=== PATIENT | male | born 1970 | race Two or more races ===

== ENCOUNTER 2019-07-20 21:22 | Emergency (ER) | payer SELFPAY ==
[~2019-07-20] VITALS: Ht 154.9 cm; Wt 72.6 kg
--- NOTE | 2019-07-20 22:04 | PHYS DOC ---
Past Medical History Past Medical History: No Pertinent History Past Surgical History: No Surgical History Smoking: Cigarettes Alcohol Use: Occasionally Drug Use: None Adult General Chief Complaint Chief Complaint: INSECT BITE HPI HPI 49-year-old male presents to the emergency department with complaints of left fifth toe pain. Patient states partially 3 days ago he noticed irritation and felt something bite him on the toe unknown exactly what this was. He has had some intermittent fever however nothing currently. He denies any myalgias, nausea, vomiting, abdominal pain, shortness of breath, chest pain. He states that given the pain presented ER for further evaluation. All other ROS negative unless documented in HPI Review of Systems Review of Systems See Above Current Medications Current Medications Current Medications Medications (Trade) Dose Ordered Sig/Skyler Start Time Stop Time Status Last Admin Dose Admin Doxycycline Hyclate (Vibra-Tab) 100 mg 1X ONCE 07/20/19 22:30 07/20/19 22:31 DC 07/20/19 22:37 100 MG Allergies Allergies Allergies Coded Allergies Type Severity Reaction Last Updated Verified No Known Drug Allergies 07/20/19 No Physical Exam Physical Exam See Above Constitutional: Well developed, well nourished, no acute distress, non-toxic appearance. [] Cardiovascular:Heart rate regular rhythm, no murmur [] Lungs & Thorax: Bilateral breath sounds clear to auscultation [] Abdomen: Bowel sounds normal, soft, no tenderness, no masses, no pulsatile masses. [] Skin: Warm, dry, no erythema, no rash. (Toe with likely spider bite, some necrotic area in the center, erythema with some blanching of the toe, no streaking up the leg, no evidence of fluctuance on examination. Extremities: No tenderness, no cyanosis, no clubbing,no edema. [] Neurologic: Alert and oriented X 3,no focal deficits noted. [] Psychologic: Affect normal, judgement normal, mood normal. [] Current Patient Data Vital Signs Vital Signs Date Time Temp Pulse Resp B/P (MAP) Pulse Ox O2 Delivery O2 Flow Rate FiO2 07/20/19 22:09 98.3 100 18 149/94 (112) 97 Room Air 98.3 EKG EKG [] Radiology/Procedures Radiology/Procedures [facility] [address] [place] [address] IMAGING REPORT Signed PATIENT: MAILE [place]: [id number] : 1970 LOCATION: ER AGE: 49 SEX: M EXAM STATUS: REG ER ORD. PHYSICIAN: SUKHI HI MD REASON: spider bite to left 5th digit on foot, eval bone for infection PROCEDURE: FOOT LEFT 2V Left foot x-rays 2 views HISTORY: Spider bite left fifth digit of the foot, infection. FINDINGS: No fracture or dislocation. No periosteal reaction or lytic bone destruction to localize a site of osteomyelitis including the fifth toe. The soft tissues are unremarkable. Plantar spur of the calcaneus. IMPRESSION: No acute osseous injury. Electronically signed by: Magalys Muhammad MD (07/21/2019 2:26 AM) [facility] DICTATED and SIGNED BY: MAGALYS MUHAMMAD MD DATE: 07/21/19225 [] Course & Med Decision Making Course & Med Decision Making Pertinent Labs and Imaging studies reviewed. (See chart for details) []49-year-old male presents to the emergency department with complaints of left fifth toe pain. Patient states partially 3 days ago he noticed irritation and felt something bite him on the toe unknown exactly what this was. He has had some intermittent fever however nothing currently. He denies any myalgias, nausea, vomiting, abdominal pain, shortness of breath, chest pain. He states aliza t given the pain presented ER for further evaluation. Xray without acute osseous injury. Plan abx upon discharge. Return to the ER with worsening symptoms Dragon Disclaimer Dragon Disclaimer This electronic medical record was generated, in whole or in part, using a voice recognition dictation system. Departure Departure Impression: Primary Impression: Spider bite Disposition: 01 HOME, SELF-CARE Condition: STABLE Referrals: NO PCP (PCP) Patient Instructions: Spider Bite Additional Instructions: Take rx as prescribed Tylenol/Motrin as needed for pain Return to the ER with worsening symptoms, streaking up the leg, worsening pain Xray without acute evidence of bone infection Scripts Doxycycline Hyclate (DOXYCYCLINE HYCLATE) 100 Mg Capsule 1 CAP PO BID for 10 Days, #20 CAP Prov: SUKHI HI MD 07/21/19 Problem Qualifiers Primary Impression: Spider bite Encounter type: initial encounter Injury intent: undetermined intent Qualified Codes: T63.304A - Toxic effect of unspecified spider venom, undetermined, initial encounter SUKHI HI MD Jul 20, 2019 22:04
[2019-07-20] MEDS ORDERED: DOXYCYCLINE HYCLATE 100 MG TABLET PO ONE (22:30)
--- NOTE | 2019-07-21 02:29 | RAD ---
Left foot x-rays 2 views HISTORY: Spider bite left fifth digit of the foot, infection. FINDINGS: No fracture or dislocation. No periosteal reaction or lytic bone destruction to localize a site of osteomyelitis including the fifth toe. The soft tissues are unremarkable. Plantar spur of the calcaneus. IMPRESSION: No acute osseous injury. Electronically signed by: Manjinder Muhammad MD (07/21/2019 2:26 AM) [facility]
[2019-07-21] MEDS ORDERED: DOXY100C2 PO (02:34)
[2019-07-21 02:35] VITALS: BP 159/90
== END 2019-07-21 02:40 | disposition home or self-care (01) ==
LOC: ER 21:22
DX: T63.301A Toxic effect of unspecified spider venom, accidental (unintentional), initial encounter (principal); M79.605 Pain in left leg; F17.210 Nicotine dependence, cigarettes, uncomplicated; Y92.89 Other specified places as the place of occurrence of the external cause
CPT/HCPCS: 73620; 99284